=== PATIENT | male | born 1985 | race Caucasian/White ===

== ENCOUNTER 2016-06-05 18:49 | Emergency (ER) | payer OTHER ==
[~2016-06-05] VITALS: Ht 180.3 cm; Wt 86.2 kg
[2016-06-05 18:53] VITALS: BP 117/63
[2016-06-05] MEDS ORDERED: ADDE10CA PO (18:58)
[2016-06-05] MEDS ORDERED: ROBA500T PO (20:08)
[2016-06-05] MEDS ORDERED: ULTR50TA PO (20:08)
[2016-06-05] MEDS ORDERED: MEDR4PAK PO (20:08)
== END 2016-06-05 20:19 | disposition home or self-care (01) ==
LOC: M ED 19:51
DX: M54.42 Lumbago with sciatica, left side (principal); M54.41 Lumbago with sciatica, right side; G89.29 Other chronic pain

== ENCOUNTER → 2017-06-03 | Outpatient (CLI) | payer OTHER | LOC: M PAIN 13:45 | DX: M51.27 Other intervertebral disc displacement, lumbosacral region (principal); M54.16 Radiculopathy, lumbar region; M79.1 Myalgia; G89.29 Other chronic pain; F17.210 Nicotine dependence, cigarettes, uncomplicated; Z79.899 Other long term (current) drug therapy | CPT/HCPCS: G0463 ==